=== PATIENT | male | born 1965 | race Caucasian/White ===

== ENCOUNTER → 2022-01-28 | Outpatient (CLI) | payer BC ==
--- NOTE | 2022-01-28 12:22 | CT ---
EXAMINATION TYPE: CT soft tissue neck w con DATE OF EXAM: 01/28/2022 HISTORY: Cough and dysphasia. COMPARISON: NONE CT DLP: 908.6 mGycm. Automated Exposure Control for Dose Reduction was Utilized. TECHNIQUE: CT scan of the neck is performed with IV Contrast, patient injected with 100 mL of Isovue 300, axial images are obtained, coronal and sagittal reformatted images are reviewed. FINDINGS: Airway: No gross abnormality seen. Parotid/submandibular glands: No gross abnormality seen. Carotid/Vascular Structures: Ascending aorta measures up to 3.9 cm on last axial images. Mild focal p laque bilateral carotid bulb level without significant stenosis. Osseous Structures: No suspicious findings. Other: Few scattered prominent but subcentimeter lymph nodes throughout the neck bilaterally. No abno rmal greater than 1 cm neck adenopathy. Parapharyngeal fat spaces are maintained bilaterally. IMPRESSION: No significant abnormality is seen to account for patient's symptoms.
== END | disposition home or self-care (01) ==
LOC: RADCTMAIN 11:23
PROVIDERS: ATTEND Otolaryngology
DX: R05.9 Cough, unspecified (principal); R13.10 Dysphagia, unspecified
CPT/HCPCS: 70491; Q9967

== ENCOUNTER → 2022-02-27 | Outpatient (CLI) | payer BC ==
[2022-02-28 12:50] LABS: Paper Wasp IgE <0.10 kU/L (<0.10); Paper Wasp IgE Class CLASS 0
[2022-02-28 12:51] LABS: Yellow Hornet IgE <0.10 kU/L (<0.10); Yellow Hornet IgE Class CLASS 0; Yellow Jacket IgE Class CLASS 0
== END | disposition home or self-care (01) ==
LOC: LABWHC1 10:53
PROVIDERS: ATTEND Otolaryngology
DX: J30.89 Other allergic rhinitis (principal)
CPT/HCPCS: 36415; 86003